=== PATIENT | male | born 1960 | race Caucasian/White ===

== ENCOUNTER 2021-01-11 10:50 | Emergency (ER) | payer BC, MEDICARE ==
[2021-01-11 11:19] VITALS: RESP 18
[2021-01-11 12:25] LABS: Basophils # (A) 0.1 k/uL (0-0.2); Basophils % (A) 1 %; Eosinophils # (A) 0.3 k/uL (0-0.7); Eosinophils % (A) 3 %; HCT 35.1 % (39.0-53.0); HGB 11.7 gm/dL (13.0-17.5); Lymphocytes # (A) 1.4 k/uL (1.0-4.8); Lymphocytes % (A) 12 %; MCH 32.6 pg (25.0-35.0); MCHC 33.2 g/dL (31.0-37.0); MCV 98.3 fL (80.0-100.0); Mean Platelet Volume 7.9; Monocytes # (A) 0.6 k/uL (0-1.0); Monocytes % (A) 5 %; Neutrophils # (A) 9.3 k/uL (1.3-7.7); Neutrophils % (A) 79 %; Platelet Count 407 k/uL (150-450); RBC 3.57 m/uL (4.30-5.90); RDW 12.5 % (11.5-15.5); WBC 11.8 k/uL (3.8-10.6)
[2021-01-11 12:36] LABS: ALT 22 U/L (4-49); AST 58 U/L (17-59); African American GFR (CKD) >90 (>60 ml/min/1.73 sqM); Albumin 2.5 g/dL (3.5-5.0); Alkaline Phosphatase 179 U/L (38-126); Amylase 46 U/L (30-110); Anion Gap 2 mmol/L; Blood Urea Nitrogen 8 mg/dL (9-20); Calcium 8.5 mg/dL (8.4-10.2); Carbon Dioxide 22 mmol/L (22-30); Chloride 108 mmol/L (98-107); Glucose 85 mg/dL (74-99); Lipase 83 U/L (23-300); Non-African American GFR(CKD) >90 (>60 ml/min/1.73 sqM); Potassium 4.8 mmol/L (3.5-5.1); Sodium 132 mmol/L (137-145); Total Bilirubin 0.5 mg/dL (0.2-1.3); Total Protein 6.1 g/dL (6.3-8.2)
[2021-01-11 12:39] LABS: Appearance,Urine Clear (Clear); Bilirubin,Urine Negative (Negative); Blood,Urine Negative (Negative); Color,Urine Yellow; Glucose,Urine (UA) Negative (Negative); Ketones,Urine Negative (Negative); Leukocyte Esterase,Urine Trace (Negative); Mucus,Urine Few /hpf; Nitrite,Urine Negative (Negative); PH, Urine 5.5 (5.0-8.0); Protein,Urine Trace (Negative); RBC,Urine 1 /hpf (0-5); Specific Gravity,Urine 1.022 (1.001-1.035); WBC,Urine 2 /hpf (0-5)
--- NOTE | 2021-01-11 13:02 | XR ---
EXAMINATION TYPE: XR chest 2V DATE OF EXAM: 01/11/2021 COMPARISON: 03/22/2017 TECHNIQUE: PA and lateral views submitted. HISTORY: Shortness of breath FINDINGS: The lungs are clear and there is no pneumothorax, pleural effusion, or focal pneumonia. Hyperinflati on. Heart size normal. No overt failure. Diffuse osteopenia. Chronic left clavicular deformity. Degen erative changes of the spine. IMPRESSION: 1. No acute process. Correlate for COPD.
[2021-01-11] MEDS ORDERED: HYDROmorphone 0.5 MG/0.5 ML SYRINGE IVP STA ×2 (13:03→17:52)
[2021-01-11] MEDS ORDERED: ONDANSETRON 4 MG/2 ML VIAL IVP STA (13:03)
[2021-01-11 13:14] VITALS: TEMP 98.1
--- NOTE | 2021-01-11 13:43 | CT ---
EXAMINATION TYPE: CT abdomen pelvis w con DATE OF EXAM: 01/11/2021 COMPARISON: CT abdomen and pelvis March 12, 2017 HISTORY: Right-sided abdominal pain. CT DLP: 1245.3 mGycm, Automated Exposure Control for Dose Reduction was Utilized. CONTRAST: CT scan of the abdomen and pelvis is performed without oral but with IV Contrast, patient injected wi th 100 mL of Isovue 300. FINDINGS: LUNG BASES: Tiny right pleural effusion slightly smaller from prior. Dependent atelectasis of both melissa ng bases. At least moderate coronary artery calcification in the LAD and RCA distributions. Stable 4 mm posterior right basilar calcified nodule or benign granuloma. LIVER/GB: Liver size stable and slightly small. Liver slightly more heterogeneously hypodense. Gallbl adder is distended margins without intraluminal CT dense gallstones. No biliary dilatation. Some surr ounding ascites noted. PANCREAS: No significant abnormality is seen. SPLEEN: Remains normal in size with some surrounding ascites currently. ADRENALS: No significant abnormality is seen. KIDNEYS: Symmetric cortical medullary uptake and excretion without hydronephrosis seen bilaterally. BOWEL: Suboptimal evaluation without enteric contrast. Stomach poorly distended and thus suboptimally evaluated. Surgical changes from right-sided partial colectomy and small bowel anastomosis redemonst rated. No suspicious small or large bowel dilatation. A few air-fluid levels in left-sided small jamar l loops noted. Redundant sigmoid colon is present. PROSTATE/SEMINAL VESICLES: Some anterior and central calcifications in nonenlarged prostate are redem onstrated. LYMPH NODES: No new greater than 1cm abdominal or pelvic lymph nodes are appreciated. Slight swirlin g of the mid abdominal mesentery and small vessels seen best just right of midline on coronal images with prominent but subcentimeter lymph nodes. OSSEOUS STRUCTURES: [id number] multilevel spurring in the spine. OTHER: Moderate to severe plaque infrarenal abdominal aorta extends into iliac branch vessels signifi cant stenosis at origin right common iliac artery felt present coronal image 46 similar to prior. Bor derline significant stenosis in the left common iliac artery coronal image 50 similar to prior. Corre late clinically for lower extremity radiculopathy type symptoms. Small amount of intra-abdominal and pelvic ascites on current study IMPRESSION: 1. New small amount of intra-abdominal and intrapelvic ascites. Etiology uncertain. Correlate for pos sible underlying hepatocellular disease. No biliary dilatation currently. 2. Overall nonobstructive bowel gas pattern but slightly prominent left mid abdominal small bowel loo ps with air-fluid levels and some twisting of the intra-abdominal mesentery with prominent but subcen timeter lymph nodes could reflect product of developing internal hernia. Clinical correlation advised .
--- NOTE | 2021-01-11 16:10 | ED ---
General Adult HPI - General Chief complaint: Abdominal Pain Stated complaint: abd pain Time Seen by Provider: 01/11/21 11:21 Source: patient, RN notes reviewed Mode of arrival: ambulatory Limitations: no limitations - History of Present Illness Initial comments: 60-year-old male with a past medical history of GERD, ulcers, hemorrhoids presents to the emergency room for a chief, and of abdominal pain. Patient states for the last week he has had severe abdominal pain and distention. He has been having bowel movements. States they're mostly loose which is normal for him. He does not have fevers or chills. He denies any dysuria. States he has not been eating or drinking as much because of this pain.Patient has no other complaints at this time including shortness of breath, chest pain, nausea or vomiting, headache, or visual changes. - Related Data Home Medications Medication Instructions Recorded Confirmed Psyllium Husk (with Sugar) 1 scoop PO DAILY 01/11/21 01/11/21 [Metamucil Powder] Allergies Allergy/AdvReac Type Severity Reaction Status Date / Time No Known Allergies Allergy Verified 01/11/21 13:05 Review of Systems ROS Statement: Those systems with pertinent positive or pertinent negative responses have been documented in the HPI. ROS Other: All systems not noted in ROS Statement are negative. Past Medical History Past Medical History: GERD/Reflux, Rheumatoid Arthritis (RA), Thyroid Disorder Additional Past Medical History / Comment(s): ulcers, hemorhoids History of Any Multi-Drug Resistant Organisms: None Reported Past Surgical History: No Surgical Hx Reported Additional Past Surgical History / Comment(s): colonoscopy, sinus surgury, "metal chip removed from rt eye" abdominal abdominal surgery as discussed earlier. Past Anesthesia/Blood Transfusion Reactions: No Reported Reaction Past Psychological History: No Psychological Hx Reported Smoking Status: Current every day smoker Past Alcohol Use History: Daily, Occasional Past Drug Use History: None Reported - Past Family History Mother Family Medical History: Cancer Father Family Medical History: Coronary Artery Disease (CAD), Liver Disease, Myocardial Infarction ([place]) Additional Family Medical History / Comment(s): quad bypass General Exam Limitations: no limitations General appearance: alert, in no apparent distress Head exam: Present: atraumatic Eye exam: Present: normal appearance, PERRL, EOMI. Absent: scleral icterus, conjunctival injection ENT exam: Present: normal exam, mucous membranes moist Neck exam: Present: normal inspection, full ROM. Absent: tenderness Respiratory exam: Present: normal lung sounds bilaterally. Absent: respiratory distress, wheezes Cardiovascular Exam: Present: regular rate, normal rhythm, normal heart sounds GI/Abdominal exam: Present: soft, distended, tenderness (Abdominal tenderness noted generalized fashion), guarding, normal bowel sounds Neurological exam: Present: alert Course Vital Signs 01/11/21 01/11/21 01/11/21 11:15 13:13 15:42 Temperature 97.8 F 98.1 F Pulse Rate 88 85 82 Respiratory 18 18 18 Rate Blood Pressure 115/68 114/69 116/82 O2 Sat by Pulse 98 98 98 Oximetry EKG Findings - EKG Comments: EKG Findings:: Normal sinus rhythm, ventricular rate 78, TN interval 132, QTc 446 Medical Decision Making - Medical Decision Making Vitals stable. Patient does have a distended tender abdomen. CBC reveals leukocytosis. CMP unremarkable. Given leg edema I did obtain a BNP which was 1000. Chest x-ray showed no acute process. Lactic acid is normal. CT abdomen and pelvis did show a new small amount of intra-abdominal and intrapelvic ascites of uncertain etiology. No biliary dilation. There is an overall nonulcerative bowel gas pattern but slightly prominent left mid abdominal small bowel loops with air-fluid levels and some twisting of the intra-abdominal mesentery with prominent lymph nodes that could reflect developing internal hernia. 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 I discussed the case with Dr. biswas who had operated on the patient before. States he did have an exploratory laparoscopy with right hemicolectomy in 2017 with dehiscence and anastomotic breakdown. Patient had one in charge and needed intubation. He does not feel comfortable operating on the patient. Feels he does not have the resources available but the patient may require. Case is also discussed with Dr. Milligan who feels the same. Ultimately [facility] was contacted, currently awaiting a callback as their transferred team is very busy. I did speak with surgeon at [facility], does accepts transfer. - Lab Data Result diagrams: 01/11/21 12:10 01/11/21 12:10 Lab Results 01/11/21 01/11/21 01/11/21 Range/Units 12:10 12:10 12:10 WBC 11.8 H (3.8-10.6) k/uL RBC 3.57 L (4.30-5.90) m/uL Hgb 11.7 L (13.0-17.5) gm/dL Hct 35.1 L (39.0-53.0) % MCV 98.3 (80.0-100.0) fL MCH 32.6 (25.0-35.0) pg MCHC 33.2 (31.0-37.0) g/dL RDW 12.5 (11.5-15.5) % Plt Count 407 (150-450) k/uL MPV 7.9 Neutrophils % 79 % Lymphocytes % 12 % Monocytes % 5 % Eosinophils % 3 % Basophils % 1 % Neutrophils # 9.3 H (1.3-7.7) k/uL Lymphocytes # 1.4 (1.0-4.8) k/uL Monocytes # 0.6 (0-1.0) k/uL Eosinophils # 0.3 (0-0.7) k/uL Basophils # 0.1 (0-0.2) k/uL Sodium 132 L (137-145) mmol/L Potassium 4.8 (3.5-5.1) mmol/L Chloride 108 H (98-107) mmol/L Carbon Dioxide 22 (22-30) mmol/L Anion Gap 2 mmol/L BUN 8 L (9-20) mg/dL Creatinine 0.63 L (0.66-1.25) mg/dL Est GFR (CKD-EPI)AfAm >90 (>60 ml/min/1.73 sqM) Est GFR (CKD-EPI)NonAf >90 (>60 ml/min/1.73 sqM) Glucose 85 (74-99) mg/dL Plasma Lactic Acid [place] (0.7-2.0) mmol/L Calcium 8.5 (8.4-10.2) mg/dL Total Bilirubin 0.5 (0.2-1.3) mg/dL AST 58 (17-59) U/L ALT 22 (4-49) U/L Alkaline Phosphatase 179 H (38-126) U/L NT-Pro-B Natriuret Pep pg/mL Total Protein 6.1 L (6.3-8.2) g/dL Albumin 2.5 L (3.5-5.0) g/dL Amylase 46 (30-110) U/L Lipase 83 (23-300) U/L Urine Color Yellow Urine Appearance Clear (Clear) Urine pH 5.5 (5.0-8.0) Ur Specific [place] 1.022 (1.001-1.035) Urine Protein Trace H (Negative) Urine Glucose (UA) Negative (Negative) Urine Ketones Negative (Negative) Urine Blood Negative (Negative) Urine Nitrite Negative (Negative) Urine Bilirubin Negative (Negative) Urine Urobilinogen 3.0 (<2.0) mg/dL Ur Leukocyte Esterase Trace H (Negative) Urine RBC 1 (0-5) /hpf Urine WBC 2 (0-5) /hpf Urine Mucus Few H (None) /hpf 01/11/21 01/11/21 Range/Units 12:10 12:10 WBC (3.8-10.6) k/uL RBC (4.30-5.90) m/uL Hgb (13.0-17.5) gm/dL Hct (39.0-53.0) % MCV (80.0-100.0) fL MCH (25.0-35.0) pg MCHC (31.0-37.0) g/dL RDW (11.5-15.5) % Plt Count (150-450) k/uL MPV Neutrophils % % Lymphocytes % % Monocytes % % Eosinophils % % Basophils % % Neutrophils # (1.3-7.7) k/uL Lymphocytes # (1.0-4.8) k/uL Monocytes # (0-1.0) k/uL Eosinophils # (0-0.7) k/uL Basophils # (0-0.2) k/uL Sodium (137-145) mmol/L Potassium (3.5-5.1) mmol/L Chloride (98-107) mmol/L Carbon Dioxide (22-30) mmol/L Anion Gap mmol/L BUN (9-20) mg/dL Creatinine (0.66-1.25) mg/dL Est GFR (CKD-EPI)AfAm (>60 ml/min/1.73 sqM) Est GFR (CKD-EPI)NonAf (>60 ml/min/1.73 sqM) Glucose (74-99) mg/dL Plasma Lactic Acid [place] 1.1 (0.7-2.0) mmol/L Calcium (8.4-10.2) mg/dL Total Bilirubin (0.2-1.3) mg/dL AST (17-59) U/L ALT (4-49) U/L Alkaline Phosphatase (38-126) U/L NT-Pro-B Natriuret Pep 1090 pg/mL Total Protein (6.3-8.2) g/dL Albumin (3.5-5.0) g/dL Amylase (30-110) U/L Lipase (23-300) U/L Urine Color Urine Appearance (Clear) Urine pH (5.0-8.0) Ur Specific [place] (1.001-1.035) Urine Protein (Negative) Urine Glucose (UA) (Negative) Urine Ketones (Negative) Urine Blood (Negative) Urine Nitrite (Negative) Urine Bilirubin (Negative) Urine Urobilinogen (<2.0) mg/dL Ur Leukocyte Esterase (Negative) Urine RBC (0-5) /hpf Urine WBC (0-5) /hpf Urine Mucus (None) /hpf Disposition Clinical Impression: Internal hernia, Abdominal pain, Leukocytosis, Ascites Narrative: History of postop complications Disposition: OTHER INSTITUTION NOT DEFINED Referrals: Shantal Mayorga DO [Primary Care Provider] - 1-2 days Time of Disposition: 17:21 - Out of Hospital Transfer - Req. Specs Out of Hospital Transfer - Requested Specifics: Other Emergency Center ([facility])
[2021-01-11 18:03] VITALS: BP 136/81; PULSE 80
== END 2021-01-11 19:10 | disposition other institution (70) ==
LOC: EC 10:50
DX: K46.9 Unspecified abdominal hernia without obstruction or gangrene (principal); D72.829 Elevated white blood cell count, unspecified; R18.8 Other ascites; F17.200 Nicotine dependence, unspecified, uncomplicated; Z20.822 Contact with and (suspected) exposure to COVID-19
CPT/HCPCS: 36415; 93005; 83880; 80053; 82150; 83605; 83690; 85025; 81001; 87635; 71046; 74177; 99285; 96374; 96376; 96375; J2405; J1170; Q9967

== ENCOUNTER → 2021-02-22 | Outpatient (CLI) | payer BC ==
--- NOTE | 2021-02-22 16:04 | CT ---
"EXAMINATION TYPE: CT abdomen w con DATE OF EXAM: 02/22/2021 COMPARISON: CT abdomen and pelvis January 11, [address] March 12, 2017 HISTORY: abdominal pain CT DLP: 455.4 mGycm, Automated Exposure Control for Dose Reduction was Utilized. CONTRAST: CT scan of the abdomen is performed with oral and with IV Contrast, patient injected with 100 mL of I sovue 300. FINDINGS: LUNG BASES: Right-sided gynecomastia is partially imaged. There is moderate coronary artery calcifica tion redemonstrated. Stable 4 mm calcified nodule or granuloma posterior right lower lobe axial image 3. LIVER/GB: Small amount of ascites posterior superior aspect of liver redemonstrated less prominent th an prior. Liver size stable is normal or slightly smaller than normal. Mild central periportal edema is nonspecific finding. Gallbladder has abnormal mucosal enhancement with moderate to severe surround ing fluid and fat stranding on current study. No biliary dilatation. PANCREAS: No significant abnormality is seen. SPLEEN: No significant abnormality is seen. ADRENALS: No significant abnormality is seen. KIDNEYS: No significant abnormality is seen. BOWEL: Oral contrast does not reach level of colon making evaluation of wall slightly suboptimal. No suspicious small bowel dilatation. Surgical changes to the right-sided colon at several levels is pre sent. No suspicious colonic dilatation. LYMPH NODES: Scattered prominent but subcentimeter retroperitoneal lymph nodes are redemonstrated. OSSEOUS STRUCTURES: Multilevel spurring in the spine. Facet arthropathy in the lumbar spine. OTHER: Mild to moderate L5 plaque distal abdominal aorta. More severe plaque in the left common iliac artery is redemonstrated. Asymmetric slight thickening of the right rectus muscle axial image 57 could reflect small hematoma o r possible scarring if there has been interval surgery as there is loss of overlying subcutaneous fat anterior abdominal wall axial image 56 noted. Correlate clinically. IMPRESSION: 1. Possible acute cholecystitis on CT. Correlate clinically. Improved perihepatic ascites. 2. Attention to right mid to lower anterior abdominal wall or rectus sheath as detailed above. A Jay level critical message alert has been initiated for Shantal Mayorga DO via the [employer] 36 0 | Critical Results System on 02/22/2021 4:01 PM. This message alert has been sent to Shantal Mayorga DO via the preferences provided by the clinician for the receipt of Radiology Critical Findings. [facility] ID [id number]."
== END | disposition home or self-care (01) ==
LOC: RADCTMAIN 14:44
PROVIDERS: ATTEND Family Medicine
DX: R18.8 Other ascites (principal)
CPT/HCPCS: 74160; Q9967

== ENCOUNTER 2023-04-07 10:30 | Emergency (ER) | payer BC, MEDICARE ==
[2023-04-07 10:54] VITALS: BP 112/68; PULSE 77; RESP 18; TEMP 98.5
--- NOTE | 2023-04-07 11:16 | XR ---
EXAMINATION TYPE: XR knee complete RT DATE OF EXAM: 04/07/2023 11:06 AM CLINICAL INDICATION:Male, 62 years old with history of Injury; COMPARISON: None. TECHNIQUE: XR knee complete RT; examined in Frontal, lateral and oblique projections. FINDINGS: No evidence of any acute osseous pathology, soft tissue swelling, or joint effusion is no genet. Atherosclerosis of the arterial vascular structure. Tricompartmental osteophyte formation involving the femoral condyles, tibial plateau and patella. Mi ld joint space narrowing. IMPRESSION: 1. No acute osseous pathology. 2. Mild tricompartmental osteoarthritic changes.
[2023-04-07] MEDS ORDERED: ACET/COD 300 MG/30 MG STARTER PACK 6 TAB BTL PO STA (12:12)
--- NOTE | 2023-04-07 12:12 | ED ---
General Adult HPI - General Chief complaint: Extremity Injury, Lower Stated complaint: Rt knee pain Time Seen by Provider: 04/07/23 11:23 Source: patient, RN notes reviewed Mode of arrival: ambulatory Limitations: no limitations - History of Present Illness Initial comments: 62-year-old male presents to the emergency room for chief complaint of right kn ee pain. Patient states yesterday he was lifting "something heavy" when he twisted and felt a lightening type pain in the right knee. Patient states since then he has had a lot of pain with walking on the right knee. He states it feels better bent been extended. He denies any other injuries.Patient has no other complaints at this time including shortness of breath, chest pain, abdominal pain, nausea or vomiting, headache, or visual changes. - Related Data Home Medications Medication Instructions Recorded Confirmed Psyllium Husk (with Sugar) 1 scoop PO DAILY 01/11/21 01/11/21 [Metamucil Powder] Allergies Allergy/AdvReac Type Severity Reaction Status Date / Time No Known Allergies Allergy Verified 04/07/23 10:41 Review of Systems ROS Statement: Those systems with pertinent positive or pertinent negative responses have been documented in the HPI. ROS Other: All systems not noted in ROS Statement are negative. Past Medical History Past Medical History: GERD/Reflux, Rheumatoid Arthritis (RA), Thyroid Disorder Additional Past Medical History / Comment(s): ulcers, hemorhoids History of Any Multi-Drug Resistant Organisms: None Reported Past Surgical History: No Surgical Hx Reported Additional Past Surgical History / Comment(s): colonoscopy, sinus surgury, "metal chip removed from rt eye" abdominal abdominal surgery as discussed earlier. Past Anesthesia/Blood Transfusion Reactions: No Reported Reaction Past Psychological History: No Psychological Hx Reported Smoking Status: Current every day smoker Past Alcohol Use History: Daily, Occasional Past Drug Use History: None Reported - Past Family History Mother Family Medical History: Cancer Father Family Medical History: Coronary Artery Disease (CAD), Liver Disease, Myocardial Infarction ([place]) Additional Family Medical History / Comment(s): quad bypass General Exam Limitations: no limitations General appearance: alert, in no apparent distress Head exam: Present: atraumatic Eye exam: Present: normal appearance, PERRL, EOMI. Absent: scleral icterus, conjunctival injection ENT exam: Present: normal exam, mucous membranes moist Neck exam: Present: normal inspection, full ROM Respiratory exam: Present: normal lung sounds bilaterally. Absent: respiratory distress, wheezes Cardiovascular Exam: Present: regular rate, normal rhythm, normal heart sounds Extremities exam: Present: normal capillary refill (cap refill less than 2 seconds,PT pulse 2+). Absent: full ROM (Knee held at 90 angle, painful to extend), joint swelling (no edema of the right knee), calf tenderness Neurological exam: Present: alert Course Vital Signs 04/07/23 10:40 Temperature 98.5 F Pulse Rate 77 Respiratory 18 Rate Blood Pressure 112/68 O2 Sat by Pulse 99 Oximetry Medical Decision Making - Medical Decision Making Was pt. sent in by a medical professional or institution (, [facility], [employer], urgent care, hospital, or residential...) When possible be specific @ -[No] Did you speak to anyone other than the patient for history (EMS, parent, family, police, friend...)? What history was obtained from this source @ -Family Did you review nursing and triage notes (agree or disagree)? Why? @ -[I reviewed and agree with nursing and triage notes] Were old charts reviewed (outside hosp., previous admission, EMS record, old EKG, old radiological studies, urgent care reports/EKG's, residential records)? Report findings @ -[No old charts were reviewed] Differential Diagnosis (chest pain, altered mental status, abdominal pain women, abdominal pain men, vaginal bleeding, weakness, fever, dyspnea, syncope, headache, dizziness, GI bleed, back pain, seizure, CVA, palpatations, mental health)? @ -Tibial plateau fracture, knee strain, ligamentous injury, DVT, arterial occlusion, meniscus injury EKG interpreted by me (3pts min.). @ -None X-rays interpreted by me (1pt min.). @ -No fracture, arthritis CT interpreted by me (1pt min.). @ -[None done] U/S interpreted by me (1pt. min.). @ -[None done] What testing was considered but not performed or refused? (CT, X-rays, U/S, labs)? Why? @ -[None] What meds were considered but not given or refused? Why? @ -[None] Did you discuss the management of the patient with other professionals (professionals i.e. , PA, AIR CHIPPER, lab, RT, psych nurse, social work case manager, boom stick worker, teacher, air control/anti air warfare officer, pillowcase cleaner)? Give summary @ -[No] Was smoking cessation discussed for >3mins.? @ -[No] Was critical care preformed (if so, how long)? @ -[No] Were there social determinants of health that impacted care today? How? (Homelessness, low income, unemployed, alcoholism, drug addiction, transportation, low edu. Level, literacy, decrease access to med. care, prison, rehab)? @ -[No] Was there de-escalation of care discussed even if they declined (Discuss DNR or withdrawal of care, Hospice)? DNR status @ -[No] What co-morbidities impacted this encounter? (DM, HTN, Smoking, COPD, CAD, Cancer, CVA, ARF, Chemo, Hep., AIDS, mental health diagnosis, sleep apnea, morbid obesity)? @ -Rheumatoid arthritis Was patient admitted / discharged? Hospital course, mention meds given and route, prescriptions, significant lab abnormalities, going to OR and other pertinent info. @ -Patient was seen in the hospital. X-ray was negative for acute fracture. As patient has pain with extension of the knee he was not provided with a knee immobilizer. He was provided with an Yoel wrap and crutches. He will follow up with orthopedics. Undiagnosed new problem with uncertain prognosis? @ -[No] Drug Therapy requiring intensive monitoring for toxicity (Heparin, Nitro, Insulin, Cardizem)? @ -[No] Were any procedures done? @ -[No] Diagnosis/symptom? @ -Knee pain Acute, or Chronic, or Acute on Chronic? @ -Acute Uncomplicated (without systemic symptoms) or Complicated (systemic symptoms)? @ -Uncomplicated Side effects of treatment? @ -[No] Exacerbation, Progression, or Severe Exacerbation? @ -[No] Poses a threat to life or bodily function? How? (Chest pain, [place], [place], pneumonia, PE, COPD, DKA, ARF, appy, cholecystitis, CVA, Diverticulitis, Homicidal, Suicidal, threat to staff... and all critical care pts) @ -[No] Disposition Clinical Impression: Knee pain, right Disposition: HOME SELF-CARE Condition: Good Instructions (If sedation given, give patient instructions): Knee Sprain (ED) Additional Instructions: Please take Tylenol 3 as needed for pain. Rest ice and elevate the right knee. Follow-up with primary care or orthopedics. Return to the emergency room for any worsening symptoms. Is patient prescribed a controlled substance at d/c from ED?: No Referrals: Shantal Mayorga DO [Primary Care Provider] - 1-2 days Kamari Johnson MD [Medical Doctor] - 1-2 days Time of Disposition: 12:11
== END 2023-04-07 12:20 | disposition home or self-care (01) ==
LOC: EC 10:30
DX: M25.561 Pain in right knee (principal); F17.200 Nicotine dependence, unspecified, uncomplicated
CPT/HCPCS: 99283